=== PATIENT | female | born 2000 | race Caucasian/White ===

== ENCOUNTER 2018-10-01 21:40 | Emergency (ER) | payer OTHER ==
[~2018-10-01] VITALS: Ht 162.6 cm; Wt 93.9 kg
[2018-10-01] MEDS ORDERED: FLUOXETINE HCL10 MG (22:03)
== END 2018-10-01 23:30 | disposition home or self-care (01) ==
LOC: ER 21:40
DX: R00.2 Palpitations (principal); F06.4 Anxiety disorder due to known physiological condition

== ENCOUNTER 2019-05-23 23:57 | Emergency (ER) | payer OTHER ==
[~2019-05-23] VITALS: Ht 160 cm; Wt 97.5 kg
[~2019-05-23 23:57] MED LIST: FLUOXETINE HCL10 MG
[2019-05-24] MEDS ORDERED: FLONASE ALLERG9.9 ML NASAL (06:00)
[2019-05-24] MEDS ORDERED: GILTUSS TR TAB1 EACH PO (06:00)
== END 2019-05-24 06:05 | disposition home or self-care (01) ==
LOC: ER 23:57
DX: J32.8 Other chronic sinusitis (principal); R50.9 Fever, unspecified

== ENCOUNTER 2019-05-26 03:48 | Emergency (ER) | payer OTHER ==
[~2019-05-26] VITALS: Ht 162.6 cm; Wt 97.5 kg
[~2019-05-26 03:48] MED LIST changes: +FLONASE ALLERG9.9 ML NASAL; +GILTUSS TR TAB1 EACH PO
[2019-05-26] MEDS ORDERED: KETO10TA2 PO (04:49)
[2019-05-26] MEDS ORDERED: ORASEP SPRAY30 ML MM (04:49)
== END 2019-05-26 04:53 | disposition home or self-care (01) ==
LOC: ER 03:48
DX: J06.9 Acute upper respiratory infection, unspecified (principal)

== ENCOUNTER 2020-02-16 17:14 | Emergency (ER) | payer OTHER ==
[~2020-02-16] VITALS: Ht 162.6 cm; Wt 97.5 kg
[~2020-02-16 17:14] MED LIST changes: +KETO10TA2 PO; +ORASEP SPRAY30 ML MM
== END 2020-02-16 18:55 | disposition home or self-care (01) ==
LOC: ER 17:14
DX: L03.114 Cellulitis of left upper limb (principal)